=== PATIENT | female | born 1985 | race Two or more races ===

== ENCOUNTER 2017-01-10 19:33 | Emergency (ER) | payer MEDICAID, OTHER ==
[~2017-01-10] VITALS: Ht 152.4 cm; Wt 95.3 kg
[2017-01-10 19:45] VITALS: BP 140/86
== END 2017-01-11 00:58 | disposition left against medical advice (07) ==
LOC: ER 19:45
DX: H57.8 Other specified disorders of eye and adnexa (principal); Z53.21 Procedure and treatment not carried out due to patient leaving prior to being seen by health care provider
CPT/HCPCS: 81025